=== PATIENT | male | born 1935 | race Caucasian/White ===

== ENCOUNTER → 2018-01-11 | Outpatient (CLI) | payer OTHER ==
[~2018-01-11] VITALS: Ht 188 cm; Wt 93.0 kg
[~2018-01-11] MED LIST: APRESOLINE25 MG PO; ATORVASTATIN CA40 MG PO; COUMADIN4 MG PO; FOLIC ACID1 MG PO; GLIPIZIDE10 MG PO; HYDROCHLOROTHIA25 MG PO; LASIX40 MG PO; PLAVIX75 MG PO; VITAMIN B122500 MCG PO; VITAMIN C500 M6 PO; VITAMIN D32000 UNI1 PO
[2018-01-11 09:41] LABS: INTER. NORMALIZED RATIO 1.4
[2018-01-11 09:43] LABS: PTT 27.6 SEC (25-37)
[2018-01-11 10:51] LABS: HEMATOCRIT 29.1 % (38.0-50.0); HEMOGLOBIN 8.6 G/DL (12.5-16.6); MCH 25.5 PG (29.0-34.0); MCHC 29.6 G/DL (30.0-36.0); MCV 86.4 FL (86-99); PLATELET COUNT 116 K/uL (156-360); RBC DIS.WIDTH-CV 17.3 % (11.8-14.6); RBC DIS.WIDTH-SD 54.9 % (39-53); RED BLOOD COUNT 3.37 M/uL (4.00-5.50); WHITE BLOOD COUNT 4.4 K/uL (4.1-10.2)
[2018-01-11 11:28] LABS: ABS NEUTROPHIL COUNT 3.3; ANISOCYTOSIS 1+; BURR CELLS 1+; EOSINOPHIL ABS CT 0.1; EOSINOPHILS 1.9 % (0-5.0); MICROCYTOSIS 1+; MONOCYTES 10.2 % (0-9.0); MYELOCYTES 0.9 %; OVALOCYTES 2+; PLAT.SUFFICIENCY DECREASED; POIKILOCYTOSIS 2+; POLYCHROMASIA 1+; TARGET CELLS 1+
[2018-01-14 15:22] LABS: CLINICAL INFORMATION NOT PROVIDED; NUMBER OF MARKERS 22; SPECIMEN TYPE BONE MARROW; SPECIMEN VIABILITY 95
== END | disposition home or self-care (01) ==
LOC: OPR 08:25 → EDSTATUS 09:00 → OPR 09:00
PROVIDERS: Internal Medicine Hematology & Oncology
DX: D61.818 Other pancytopenia (principal); D64.9 Anemia, unspecified; I10 Essential (primary) hypertension; E78.5 Hyperlipidemia, unspecified; Z79.02 Long term (current) use of antithrombotics/antiplatelets; Z79.01 Long term (current) use of anticoagulants; Z85.820 Personal history of malignant melanoma of skin
CPT/HCPCS: 77012; 82948; 85007; 85025; 85610; 85730; J3010